=== PATIENT | female | born 1965 | race Caucasian/White ===

== ENCOUNTER 2017-03-07 05:29 | Day surgery (SDC) | payer OTHER ==
[~2017-03-07] VITALS: Ht 162.6 cm; Wt 50.6 kg
[2017-03-07] VITALS (11 sets, daily range): BP systolic 94–142; BP diastolic 49–89; PULSE 66–86; RESP 10–17; O2SAT 94–99
[~2017-03-07 05:29] MED LIST: ASCO1CAP4 PO; CLON0.5T PO; MAGN200T PO
[2017-03-07] MEDS ORDERED: Ondansetron 2 mg/mL 2 mL Inj ONE (05:30)
[2017-03-07] MEDS ORDERED: fentaNYL-PF 50 mCg/mL 2 mL Inj ONE (05:30)
[2017-03-07] MEDS ORDERED: Dexamethasone 4 mg/mL Inj ONE (05:30)
[2017-03-07] MEDS ORDERED: Propofol 10,000 mCg/mL 20 mL Inj ONE (05:30)
[2017-03-07] MEDS: Lactated Ringer's 1,000 ML IV SCH ×2 (06:15→07:18)
[2017-03-07] MEDS ORDERED: Lidocaine 1%-Epi 1:100,000 20 mL Inj INFILTRATE ONE (07:11)
[2017-03-07] MEDS ORDERED: HYDROcodone-APAP 5-325 mg Tablet PO PRN (07:20)
--- NOTE | 2017-03-07 07:22 | PCM.HPANE ---
Patient Data Surgeon Admitting Provider: Attending Provider:Luis Jewell DO Primary Care Physician:Yessenia Tim Other Provider:Bette Jacobsen Anesthesia Reason for Visit Right Carpal Tunnel Syndrome Ht/WT & BMI Height (Feet): 5 Height (Inches): 4 Weight (Kilograms): 50.6 Body Mass Index 19.00 Allergies Coded Allergies: buprenorphine (Verified Allergy, Unknown, 09/14/16) naproxen (Verified Allergy, Unknown, 09/14/16) Past Anesthesia History Anesthesia History: Denies:: Abnormal Airway, Anesthesia Reactions, Difficult Intubation Diabetes History Hx Diabetes?: No MRSA MRSA: No Medications Hypertension Medication: No Home Meds Incl Beta Willard: No Reported Medications Magnesium 200 Mg Tablet6,400 Mg PO DAILY 02/18/17 Clonazepam (Klonopin)0.5 Mg Tablet0.5 Mg PO TID PRN For Anxiety Ref 0 02/18/17 Ascorbic Acid/Collagen Hydr (Collagen Plus Vit C Capsule)1 Each Capsule1 Each PO DAILY 02/18/17 History History of ENT Problems?: No HEENT History: Denies:: Hearing Problem Denture Type: None Teeth Condition: Within Normal Limits Hx of Heart Problems?: No Cardiovascular History: Denies:: Congestive Heart Failure Hypertension Hx of Respiratory Problem?: Yes Respiratory History: Positive for:: Asthma Pneumonia Denies:: COPD Emphysema Oxygen Administration Tuberculosis Use of C-PAP Machine Hx Neurologic Problems?: Yes Neurological History: Denies:: Alzheimer's Disease Dementia Headaches Multiple Sclerosis Parkinson's Disease Seizures Hx of GI Problems?: Yes Hx of Problems?: No Genitourinary History: Denies:: Kidney Stones Urinary Tract Infection Female Hx: Denies:: Currently (hx of tubal ligation) Problems with Breasts? Skin History: Denies:: History Skin Disorders? Pressure Ulcers Hx Musculoskeletal Problems?: Yes Musculoskeletal History: Positive for:: Back Injury (cervical neck) Fibromyalgia Musculoskeletal Trauma (right carpal tunnel current admission problem) Hx of Psycho/Social Problems?: Yes Psycho Social History: Positive for:: Anxiety Hx Surgeries?: Yes (tubal ligation, D+C, cervical cone) Hx Any Other Health Problems?: Yes Other History: Positive for:: Cancer (cervical) Denies:: Thyroid Disease Hx Diabetes: No Hx Alcohol Use: NoHx Substance Use: Yes (medical marijuana) Smoking Status: Never Smoker Have You Smoked inLast 12 mo: No Stop/Bang Treated for Sleep Apnea?: No Do You Have a CPAP Machine?: No S-Snoring: Do You Snore Loudly: No T-Tired: feel tired, fatigued: No O-Obsered: Observed not breath: Yes P-Blood Pressure: treated: No B- Body Mass Index > 35 kg/m2: No A- Age over 50: Yes N- Neck Large Circumference: No G- Gender Male: No JENNIFER Total Score: 2 JENNIFER Risk Assessment: Low Risk, <3 Yes Risk Assessment Category Category 1A: Patient has history of documented sleep apnea, and HAS NOT received any narcotic, sedative or anesthesia administration during this stay. Category 1B: Patient has history of documented sleep apnea, and HAS received any narcotic , sedative or anesthesia administration during this stay Category 2: Patient has SUSPECTED Obstructive Sleep Apnea, and HAS received any narcotic , sedative or anesthesia administration during this stay. Category 3: Patient has SUSPECTED Obstructive Sleep Apnea and HAS NOT received narcotic, sedative or anesthesia administration during this stay. Category 4: Outpatient in Procedural Areas with known sleep apnea or who screen positive for High Risk via the STOP/BANG questionnaire. Exam Exam Vital Signs Vital Signs Date Time Temp Pulse Resp B/P Pulse Ox O2 Delivery O2 Flow Rate FiO2 03/07/17 06:02 36.7 78 16 122/74 99 Room Air General Appearance: Alert, Oriented X3, Cooperative, No Acute Distress HEENT/AIRWAY: MP 2 Lungs: Clear to Auscultation, Normal Air Movement Heart: Exam Unremarkable, Regular Rate/Rhythm, No Murmurs/Rubs/Gallops Meds/Labs/Diagnostics Admission Meds Current Medications Lactated Ringer's (Lr) 1,000 ml @ 120 mls/hr Q8H20M IV Last administered on t 06:15; Start 03/07/17 at 05:00; Stop 03/07/17 at 13:19 Plan Impression Patient chart reviewed, patient interviewed and anesthestic plan with risks, benefits, and alternatives discussed, and informed consent obtained. ASA Physical Status: ASA1 Normal Healthy Anesthetic Plan: GA Bene/Risks/Altern/Consents: Yes HP Complete Prior to Induction: Yes Fabrice Mae MD March 07, 2017 07:22
[2017-03-07] MEDS ORDERED: Lactated Ringer's 1,000 ML IV SCH (07:32)
[2017-03-07] MEDS ORDERED: Lactated Ringer's 500 ML IV PRN (07:32)
[2017-03-07] MEDS ORDERED: MetoCLOpramide 5 mg/mL 2 mL Inj IVPUSH PRN (07:35)
[2017-03-07] MEDS ORDERED: EPHEDrine Sulfate 50 mg/mL Inj IVPUSH PRN (07:35)
[2017-03-07] MEDS ORDERED: Dexamethasone 4 mg/mL Inj IVPUSH PRN (07:35)
[2017-03-07] MEDS ORDERED: Ondansetron 2 mg/mL 2 mL Inj IVPUSH PRN (07:35)
[2017-03-07] MEDS ORDERED: Phenylephrine 10,000 mCg/mL Inj IVPUSH PRN (07:35)
[2017-03-07] MEDS: fentaNYL-PF 50 mCg/mL 2 mL Inj IVPUSH PRN ×3 (08:04→08:16)
--- NOTE | 2017-03-07 08:12 | PCM.ANEP1 ---
Post Anesthesia Phase 1 PACU Phase 1 Assessment Vital Signs Vital Signs Date Time Temp Pulse Resp B/P Pulse Ox O2 Delivery O2 Flow Rate FiO2 03/07/17 08:10 71 17 142/78 97 Room Air 03/07/17 08:05 86 13 137/73 98 Room Air 03/07/17 08:00 82 11 137/71 96 Room Air 03/07/17 07:55 83 15 110/70 98 Room Air 03/07/17 07:50 66 10 94/53 99 LMA 8 03/07/17 07:47 36.1 66 11 98/49 98 LMA 8 03/07/17 06:02 36.7 78 16 122/74 99 Room Air Anesthetic Administered: GA Level of Alertness: Awake, talking AU's with Equal Strength: Yes Pain: No Nausea or Vomiting: No Airway Device: LMA Oxygen Delivery: Nasal Cannula Lungs: Clear to Auscultation, Normal Air Movement Dermatome Level: Full Sensation Complications: No Follow up Care: No Patient Instructions Provided: Yes Fabrice Mae MD March 07, 2017 08:12
[2017-03-07] MEDS ORDERED: Lactated Ringer's 1,000 ML IV ONE (08:23)
--- NOTE | 2017-03-07 09:08 | OP ---
[address] [address] OPERATIVE REPORT PATIENT: SHANDRA TEAGUE : 1965 MR#: [id number] ADMIT: 03/07/2017 JOB ID: [id number] DATE OF SURGERY: 03/07/2017 PREOPERATIVE DIAGNOSIS(ES): Right carpal tunnel syndrome. POSTOPERATIVE DIAGNOSIS(ES): Right carpal tunnel syndrome. PROCEDURE: Right open carpal tunnel release. SURGEON: Luis Jewell DO. ANESTHESIA: General. HISTORY: The patient is a pleasant 51-year-old female with a longstanding history of right hand pain and paresthesias. She had failed conservative treatment with nighttime bracing and demonstrated findings of severe carpal tunnel syndrome on electrodiagnostic findings. I discussed with the patient the risks, benefits, alternatives and indications to proceed with a right open carpal tunnel release. She understood the risks included, but were not limited to, neurovascular injury, tendon injury, infection, failure to resolve the patient of her preoperative symptoms, stiffness, persistent pain, all of which may require further intervention. She understood that the main reason to proceed with surgery with her severe findings is to ensure that her symptoms would not worsen and to help with the pain. It would be in upwards of a year to see how much of her sensation would return and there is a chance she would not have complete recovery of the sensation. All questions were answered. Consent was signed and placed in chart. PROCEDURE IN DETAIL: The patient was brought to the operative suite and placed supine on the operating room table. Surgical time-out was performed. Everyone in the room was in agreement. After appropriate anesthesia was obtained, a right upper arm tourniquet was applied. The right upper extremity prepped and draped in a sterile fashion. Right upper extremity was then exsanguinated, and the tourniquet inflated to 250 mmHg. A 2 cm longitudinal incision was made in line with the radial aspect of the ring finger and ulnar aspect of the palmaris longus. The incision was kept distal to the wrist crease and proximal to Vo cardinal line. Subcutaneous tissues were dissected with bipolar electrocautery utilized to maintain hemostasis throughout the procedure. The palmar fascia was first identified and incised longitudinally in line with the skin incision, followed by exposure of the underlying transverse carpal ligament. The transverse carpal ligament was then released in its entirety to include the distal extent of the antebrachial fascia. Copious irrigation was then performed, followed by closure of the skin with 5-0 nylon in a simple interrupted fashion. The patient was then placed in a bulky sterile dressing. ESTIMATED BLOOD LOSS: Less than 1 cc. COMPLICATIONS: None. DISPOSITION: The patient tolerated the procedure well. Anesthesia was reversed. The patient was transferred to the PACU for recovery. POSTOPERATIVE PLAN: The patient will follow up in the office in two weeks. We will remove the patient's sutures at that time and have her start working on range of motion and scar mobilization.
== END 2017-03-07 23:59 | disposition home or self-care (01) ==
LOC: SAS 05:29
PROVIDERS: ATTEND Orthopaedic Surgery
DX: G56.01 Carpal tunnel syndrome, right upper limb (principal); M79.7 Fibromyalgia; G31.84 Mild cognitive impairment of uncertain or unknown etiology; K31.84 Gastroparesis; M48.02 Spinal stenosis, cervical region; J45.909 Unspecified asthma, uncomplicated; M19.90 Unspecified osteoarthritis, unspecified site; K58.9 Irritable bowel syndrome, unspecified; F12.90 Cannabis use, unspecified, uncomplicated; F41.9 Anxiety disorder, unspecified; Z85.43 Personal history of malignant neoplasm of ovary
CPT/HCPCS: 64721; J1100; J2405; J3010; J7120

== ENCOUNTER 2017-03-09 12:26 | Emergency (ER) | payer OTHER ==
[~2017-03-09] VITALS: Ht 162.6 cm; Wt 50.0 kg
[2017-03-09 12:31] VITALS: BP 153/85; PULSE 71; RESP 16; O2SAT 99
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
[2017-03-09] MEDS ORDERED: cefTRIAXone Inj 250 MG, Lidocaine PF 1% Inj 0.9 ML in Syringe 1 EACH IM ONE (16:45)
[2017-03-09 18:05] VITALS: BP 122/65; PULSE 80; RESP 20; O2SAT 100
== END 2017-03-09 17:30 | disposition home or self-care (01) ==
LOC: SED 12:26
DX: T76.21XA Adult sexual abuse, suspected, initial encounter (principal); X58.XXXA Exposure to other specified factors, initial encounter; Y93.9 Activity, unspecified; Y92.009 Unspecified place in unspecified non-institutional (private) residence as the place of occurrence of the external cause; Y99.8 Other external cause status; S20.219A Contusion of unspecified front wall of thorax, initial encounter; S40.019A Contusion of unspecified shoulder, initial encounter; Z79.899 Other long term (current) drug therapy; Z88.8 Allergy status to other drugs, medicaments and biological substances
CPT/HCPCS: 36415; 86706; 87491; 87591; 96372; 99284; G0433; J0696

== ENCOUNTER 2017-07-18 17:31 | Emergency (ER) | payer OTHER ==
[~2017-07-18] VITALS: Ht 162.6 cm; Wt 56.0 kg
[2017-07-18 17:43] VITALS: BP 127/77; PULSE 78; RESP 16; O2SAT 100
[2017-07-18 18:30] LABS: BASOPHILS % (AUTO) 0.8 % (0-3); EOSINOPHILS % (AUTO) 2.2 % (0-5); MONOCYTES % (AUTO) 7.9 % (4-12); Mean Corpuscular Hemoglobin 28.5 pg (27.0-35.0); Mean Corpuscular Volume 89.2 fL (81-100); NEUTROPHILS % (AUTO) 63.3 % (40-74); Platelet Count 295 bil/L (150-400)
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
[2017-07-18 20:15] VITALS: BP 106/59; PULSE 72; RESP 20; O2SAT 98
[2017-07-19 00:46] VITALS: BP 112/62; PULSE 70; RESP 20; O2SAT 98
[2017-07-19 04:41] VITALS: BP 110/62; PULSE 70; RESP 14; O2SAT 98
[2017-07-19] MEDS ORDERED: LORazepam 1 mg Tablet PO ONE (10:15)
== END 2017-07-19 10:28 | disposition home or self-care (01) ==
LOC: SED 17:31
DX: R45.851 Suicidal ideations (principal); F43.0 Acute stress reaction; J45.909 Unspecified asthma, uncomplicated; F41.9 Anxiety disorder, unspecified; M79.7 Fibromyalgia; Z87.01 Personal history of pneumonia (recurrent); Z98.890 Other specified postprocedural states; Z88.8 Allergy status to other drugs, medicaments and biological substances

== ENCOUNTER 2017-07-20 20:14 | Emergency (ER) | payer OTHER ==
[~2017-07-20] VITALS: Ht 162.6 cm; Wt 57.7 kg
[2017-07-20 20:29] VITALS: BP 153/84; PULSE 80; RESP 16; O2SAT 100
== END 2017-07-20 22:00 | disposition left against medical advice (07) ==
LOC: SED 20:14
DX: Z53.21 Procedure and treatment not carried out due to patient leaving prior to being seen by health care provider (principal)